=== PATIENT | female | born 1950 | race Two or more races ===

== ENCOUNTER 2018-09-06 12:55 | Outpatient (CLI) | payer MEDICARE, OTHER | END 2018-09-06 20:14 | disposition home or self-care (01) | LOC: MRD 12:55 | DX: M17.12 Unilateral primary osteoarthritis, left knee (principal); M25.862 Other specified joint disorders, left knee; E11.9 Type 2 diabetes mellitus without complications; I10 Essential (primary) hypertension | CPT/HCPCS: 73562 ==